=== PATIENT | male | born 1945 | race Caucasian/White ===

== ENCOUNTER → 2018-07-01 | Outpatient (CLI) | payer MEDICARE, MEDICAID ==
[~2018-07-01] MED LIST: FLUO20CA8 PO; HYDR-3245 PO; INSU100C SQ-INSULIN; INSU100V8 SQ; LISI-167 PO; OMEP-110 PO; OXYC1TAB7 PO; PREG50CA PO
== END | disposition home or self-care (01) ==
LOC: CFH 10:21
PROVIDERS: ATTEND Internal Medicine
DX: J44.9 Chronic obstructive pulmonary disease, unspecified (principal); R91.1 Solitary pulmonary nodule; I25.10 Atherosclerotic heart disease of native coronary artery without angina pectoris
CPT/HCPCS: 71250

== ENCOUNTER → 2018-07-23 | Outpatient (CLI) | payer MEDICARE, MEDICAID ==
[~2018-07-23] MED LIST changes: +GABA300C10 PO; +HYDR-3307 PO; +LISI5TAB7 PO; +VERA120T5 PO
== END | disposition home or self-care (01) ==
LOC: RAD 12:10
PROVIDERS: ATTEND Nurse Practitioner
DX: J44.9 Chronic obstructive pulmonary disease, unspecified (principal); R91.1 Solitary pulmonary nodule
CPT/HCPCS: 71250

== ENCOUNTER → 2018-07-30 | Outpatient (CLI) | payer MEDICARE, MEDICAID | END | disposition home or self-care (01) | LOC: PETCFH 13:38 | PROVIDERS: ATTEND Nurse Practitioner | DX: J43.9 Emphysema, unspecified (principal); J93.83 Other pneumothorax; J98.11 Atelectasis | CPT/HCPCS: 78815; A9552 ==

== ENCOUNTER 2018-07-31 13:30 | Inpatient (IN) | payer MEDICARE, MEDICAID ==
[~2018-07-31] VITALS: Ht 185.4 cm; Wt 77.4 kg
[2018-07-31] MEDS ORDERED: SODIUM CHLORIDE FLUSH 10ML SYR IVF ONE (14:00)
[2018-07-31 14:30] LABS: ALBUMIN 3.2 g/dL (3.4-5.0); ANION GAP 12 mmol/L (5-15); CALCIUM 9.6 mg/dL (8.5-10.1); CHLORIDE 105 mmol/L (98-107)
[2018-07-31 14:34] LABS: ALANINE AMINOTRANSFERASE 29 U/L (12-78); ALKALINE PHOSPHATASE 159 U/L (45-117); BILIRUBIN,TOTAL 0.6 mg/dL (0.2-1.0); CREATININE 0.77 mg/dL (0.7-1.3); TOTAL PROTEIN 7.4 g/dL (6.4-8.2)
[2018-07-31] MEDS ORDERED: LIDOCAINE-MPF 1%, 5ML ONE (14:34)
[2018-07-31 14:37] LABS: INTERNATIONAL NORMALIZED RATIO 0.91 (0.93-1.1); PROTHROMBIN TIME 9.4 Seconds (9.6-11.5)
[2018-07-31 14:40] LABS: BASOPHILS # (AUTO) 0.06 x10^3/uL (0-0.1); BASOPHILS % (AUTO) 1 % (0-1); EOSINOPHILS # (AUTO) 0.35 x10^3/uL (0-0.4); EOSINOPHILS % (AUTO) 4 % (1-7); LYMPHOCYTES # (AUTO) 2.46 x10^3/uL (1-3.4); LYMPHOCYTES % (AUTO) 29 % (22-44); MD NO; MEAN CORPUSCULAR HEMOGLOBIN 26.5 pg (27.5-34.5); MEAN CORPUSCULAR HGB CONC 33.4 g/dL (33.2-36.2); MEAN CORPUSCULAR VOLUME 79.6 fL (81-97); MEAN PLATELET VOLUME 8.3 fL (7.4-10.4); MONOCYTES # (AUTO) 0.96 x10^3/uL (0.2-0.8); MONOCYTES % (AUTO) 11 % (2-9); NEUTROPHILS # (AUTO) 4.71 x10^3/uL (1.8-6.8); NEUTROPHILS % (AUTO) 55 % (42-75); PLATELET COUNT 261 x10^3/uL (130-400); RED BLOOD COUNT 4.89 x10^6/uL (4.38-5.82); RED CELL DISTRIBUTION WIDTH 17.8 % (9.4-14.8)
[2018-07-31] MEDS ORDERED: FLUMAZENIL 0.1 MG/1 ML, 5ML ONE (14:46)
[2018-07-31] MEDS ORDERED: MIDAZOLAM 1 MG/ML, 5ML ONE (14:46)
[2018-07-31] MEDS ORDERED: NALOXONE 1 MG/ML, 2ML ONE (14:46)
[2018-07-31] MEDS ORDERED: FENTANYL PF 100 MCG/2ML ONE (14:46)
[2018-07-31] MEDS ORDERED: SODIUM CHLORIDE FLUSH 10ML SYR IVF PRN (15:00)
[2018-07-31] MEDS ORDERED: MORPHINE SULFATE 4 MG/ML, 1ML ONE (16:58)
[2018-07-31] MEDS ORDERED: ONDANSETRON 2MG/ML, 2ML IVPush PRN (17:00)
[2018-07-31] MEDS ORDERED: CYCLOBENZAPRINE 10 MG TABLET PO PRN (17:00)
[2018-07-31] MEDS ORDERED: hydrALAzine 20 MG/ML, 1ML IVPush PRN (17:00)
[2018-07-31] MEDS ORDERED: INSULIN GLARGINE 100 UNITS/ML, PEN SQ-INSULIN SCH (17:00)
[2018-07-31] MEDS ORDERED: ACETAMINOPHEN 325 MG TABLET PO PRN (17:00)
[2018-07-31] MEDS ORDERED: GUAIFENESIN/COD200MG-20MG/10ML LIQUID PO PRN (17:00)
[2018-07-31] MEDS ORDERED: DOCUSATE 100 MG CAPSULE PO PRN (17:00)
[2018-07-31] MEDS: morphine SULFATE 10 MG/ML, 1ML IVPush PRN (17:06)
[2018-07-31 17:41] VITALS: BP 112/65
[2018-07-31] MEDS: HYDROcodone/APAP 10/325 MG TABLET PO PRN (18:56)
[2018-07-31 20:56] VITALS: BP 108/56
[2018-07-31] MEDS: GABAPENTIN 300 MG CAPSULE PO SCH (21:55)
[2018-07-31] MEDS: INSULIN GLARGINE 100 UNITS/ML, PEN SQ-INSULIN SCH (22:32)
[2018-08-01 02:19] VITALS: BP 120/68
[2018-08-01 05:14] LABS: BASOPHILS # (AUTO) 0.05 x10^3/uL (0-0.1); BASOPHILS % (AUTO) 1 % (0-1); EOSINOPHILS # (AUTO) 0.57 x10^3/uL (0-0.4); EOSINOPHILS % (AUTO) 6 % (1-7); LYMPHOCYTES # (AUTO) 2.77 x10^3/uL (1-3.4); LYMPHOCYTES % (AUTO) 30 % (22-44); MD NO; MEAN CORPUSCULAR HEMOGLOBIN 26.1 pg (27.5-34.5); MEAN CORPUSCULAR VOLUME 79.3 fL (81-97); MEAN PLATELET VOLUME 7.8 fL (7.4-10.4); MONOCYTES # (AUTO) 0.99 x10^3/uL (0.2-0.8); MONOCYTES % (AUTO) 11 % (2-9); NEUTROPHILS # (AUTO) 4.92 x10^3/uL (1.8-6.8); NEUTROPHILS % (AUTO) 53 % (42-75); PLATELET COUNT 243 x10^3/uL (130-400); RED BLOOD COUNT 4.38 x10^6/uL (4.38-5.82)
[2018-08-01 05:22] LABS: ANION GAP 7 mmol/L (5-15); CALCIUM 8.5 mg/dL (8.5-10.1); CHLORIDE 106 mmol/L (98-107); CREATININE 0.61 mg/dL (0.7-1.3)
[2018-08-01] MEDS: INSULIN LISPRO 100 UNITS/ML, PEN SQ-INSULIN SCH ×4 (07:00→20:52)
[2018-08-01] MEDS ORDERED: ALBUTEROL/IPRATROPIUM 2.5MG/0.5MG, 3 ML NPPB SCH (07:00)
[2018-08-01 07:10] VITALS: BP 99/57
[2018-08-01] MEDS: LISINOPRIL 5 MG TABLET PO SCH (08:40)
[2018-08-01] MEDS: INSULIN GLARGINE 100 UNITS/ML, PEN SQ-INSULIN SCH ×2 (08:40→20:51)
[2018-08-01] MEDS: GABAPENTIN 300 MG CAPSULE PO SCH ×3 (08:41→20:42)
[2018-08-01] MEDS: VERAPAMIL 120MG TABLET PO SCH (08:41)
[2018-08-01] MEDS: FLUOXETINE HCL 20 MG CAPSULE PO SCH (08:41)
[2018-08-01] MEDS: OMEPRAZOLE 20 MG CAPSULE.DR PO SCH (08:42)
[2018-08-01] MEDS: HYDROcodone/APAP 10/325 MG TABLET PO PRN ×2 (08:48→20:52)
[2018-08-01] MEDS ORDERED: ALBUTEROL/IPRATROPIUM 2.5MG/0.5MG, 3 ML NPPB PRN (10:00)
[2018-08-01] MEDS: FLUTICASONE/VILANTEROL 100-25MCG/INH INH SCH (10:55)
[2018-08-01 14:26] LABS: RED BLOOD COUNT 4.37 x10^6/uL (4.38-5.82)
[2018-08-01 14:29] LABS: ABSOLUTE RETICS # 0.061 x10^6/uL (0.5-1.5); RETICULOCYTE COUNT % 1.41 % (0.5-1.5)
[2018-08-01 15:12] VITALS: BP 102/50
[2018-08-01 20:26] VITALS: BP 97/60
[2018-08-01] MEDS: morphine SULFATE 10 MG/ML, 1ML IVPush PRN (23:43)
[2018-08-02 02:46] VITALS: BP 110/66
[2018-08-02 06:44] VITALS: BP 108/64
[2018-08-02] MEDS: INSULIN LISPRO 100 UNITS/ML, PEN SQ-INSULIN SCH ×4 (07:33→21:00)
[2018-08-02] MEDS: FLUOXETINE HCL 20 MG CAPSULE PO SCH (09:10)
[2018-08-02] MEDS: OMEPRAZOLE 20 MG CAPSULE.DR PO SCH (09:10)
[2018-08-02] MEDS: GABAPENTIN 300 MG CAPSULE PO SCH ×3 (09:10→21:55)
[2018-08-02] MEDS: VERAPAMIL 120MG TABLET PO SCH (09:10)
[2018-08-02] MEDS: HYDROcodone/APAP 10/325 MG TABLET PO PRN ×3 (09:10→22:10)
[2018-08-02] MEDS: LISINOPRIL 5 MG TABLET PO SCH (09:10)
[2018-08-02] MEDS: FLUTICASONE/VILANTEROL 100-25MCG/INH INH SCH (09:10)
[2018-08-02] MEDS: INSULIN GLARGINE 100 UNITS/ML, PEN SQ-INSULIN SCH ×2 (10:00→21:55)
[2018-08-02 15:09] VITALS: BP 99/54
[2018-08-02 20:17] VITALS: BP 94/59
[2018-08-03 02:56] VITALS: BP 111/66
[2018-08-03 05:24] LABS: BASOPHILS # (AUTO) 0.05 x10^3/uL (0-0.1); BASOPHILS % (AUTO) 0 % (0-1); EOSINOPHILS % (AUTO) 4 % (1-7); LYMPHOCYTES # (AUTO) 3.64 x10^3/uL (1-3.4); LYMPHOCYTES % (AUTO) 29 % (22-44); MD NO; MEAN CORPUSCULAR HEMOGLOBIN 26.3 pg (27.5-34.5); MEAN CORPUSCULAR HGB CONC 33.1 g/dL (33.2-36.2); MEAN CORPUSCULAR VOLUME 79.2 fL (81-97); MEAN PLATELET VOLUME 7.9 fL (7.4-10.4); MONOCYTES # (AUTO) 1.22 x10^3/uL (0.2-0.8); MONOCYTES % (AUTO) 10 % (2-9); NEUTROPHILS % (AUTO) 57 % (42-75); PLATELET COUNT 252 x10^3/uL (130-400); RED BLOOD COUNT 4.54 x10^6/uL (4.38-5.82); RED CELL DISTRIBUTION WIDTH 18.4 % (9.4-14.8)
[2018-08-03 05:34] LABS: INTERNATIONAL NORMALIZED RATIO 0.95 (0.93-1.1); PROTHROMBIN TIME 9.8 Seconds (9.6-11.5)
[2018-08-03] MEDS: INSULIN LISPRO 100 UNITS/ML, PEN SQ-INSULIN SCH ×4 (07:14→21:49)
[2018-08-03 07:38] LABS: ANION GAP 10 mmol/L (5-15); CALCIUM 8.3 mg/dL (8.5-10.1); CHLORIDE 103 mmol/L (98-107)
[2018-08-03 09:00] VITALS: BP 112/72
[2018-08-03] MEDS: FLUTICASONE/VILANTEROL 100-25MCG/INH INH SCH (09:04)
[2018-08-03] MEDS: GABAPENTIN 300 MG CAPSULE PO SCH ×3 (09:05→20:59)
[2018-08-03] MEDS: LISINOPRIL 5 MG TABLET PO SCH (09:05)
[2018-08-03] MEDS: FLUOXETINE HCL 20 MG CAPSULE PO SCH (09:05)
[2018-08-03] MEDS: INSULIN GLARGINE 100 UNITS/ML, PEN SQ-INSULIN SCH ×2 (09:05→21:49)
[2018-08-03] MEDS: OMEPRAZOLE 20 MG CAPSULE.DR PO SCH (09:05)
[2018-08-03] MEDS: VERAPAMIL 120MG TABLET PO SCH (09:05)
[2018-08-03 12:25] VITALS: BP 116/66
[2018-08-03] MEDS ORDERED: BUPIVACAINE/PF-EPI 0.5% 1:200K ONE (14:59)
[2018-08-03] MEDS ORDERED: MIDAZOLAM 1 MG/ML, 2ML ONE (15:09)
[2018-08-03] MEDS ORDERED: FENTANYL PF 250 MCG/5ML ONE (15:09)
[2018-08-03] MEDS ORDERED: PROPOFOL 10 MG/ML, 20ML ONE (15:21)
[2018-08-03] MEDS ORDERED: FENTANYL PF 100 MCG/2ML ONE (15:56)
[2018-08-03] MEDS ORDERED: OXYcodone 5 MG/5 ML ORAL.SOL UDC PO PRN (16:00)
[2018-08-03] MEDS ORDERED: PROMETHAZINE 12.5 MG SUPP PR PRN (16:00)
[2018-08-03] MEDS ORDERED: MORPHINE SULFATE 4 MG/ML, 1ML IVPush PRN (16:00)
[2018-08-03] MEDS ORDERED: FENTANYL PF 100 MCG/2ML IV PRN (16:00)
[2018-08-03] MEDS ORDERED: MIDAZOLAM 1 MG/ML, 2ML IV PRN (16:00)
[2018-08-03] MEDS ORDERED: ALBUTEROL SULFATE 2.5 MG/3 ML NPPB PRN (16:00)
[2018-08-03] MEDS ORDERED: hydrALAzine 20 MG/ML, 1ML IV PRN (16:00)
[2018-08-03] MEDS ORDERED: ONDANSETRON 2MG/ML, 2ML IV PRN ×2 (16:00→18:30)
[2018-08-03] MEDS ORDERED: LABETALOL 5MG/ML, 20ML IV PRN (16:00)
[2018-08-03] MEDS ORDERED: EPHEDRINE 50 MG/ML, 1ML IVPush PRN (16:00)
[2018-08-03] MEDS ORDERED: MEPERIDINE/PF 25MG/0.5ML IVPush PRN (16:00)
[2018-08-03] MEDS ORDERED: PROMETHAZINE 25 MG/ML, 1ML IV PRN (16:00)
[2018-08-03] MEDS ORDERED: LORazepam 2 MG/ML, 1ML IVPush PRN (16:00)
[2018-08-03] MEDS ORDERED: ACETAMINOPHEN 325 MG TABLET PO PRN (16:00)
[2018-08-03] MEDS ORDERED: ONDANSETRON ODT 8 MG PO PRN (16:00)
[2018-08-03] MEDS ORDERED: DEXAMETHASONE 4 MG/ML, 1ML ONE (16:09)
[2018-08-03] MEDS ORDERED: ROCURONIUM 10MG/ML,5ML ONE (16:09)
[2018-08-03] MEDS ORDERED: ONDANSETRON 2MG/ML, 2ML ONE (16:09)
[2018-08-03] MEDS ORDERED: SUCCINYLCHOLINE 20 MG/ML, 10ML ONE (16:09)
[2018-08-03] MEDS ORDERED: HYDROmorphone 2 MG/ML, 1ML ONE (16:52)
[2018-08-03] MEDS: HYDROmorphone 1 MG/ML, 1ML IV PRN ×3 (16:54→17:14)
[2018-08-03] MEDS: POTASSIUM CHLORIDE 20 MEQ in D5%-0.45% NACL 1,000 ML IV SCH (18:00)
[2018-08-03] MEDS ORDERED: HEPARIN 5,000 UNITS/ML, 1ML SQ SCH (18:00)
[2018-08-03] MEDS: ACETAMINOPHEN 500 MG TABLET PO SCH (18:34)
[2018-08-03 20:07] VITALS: BP 100/52
[2018-08-03] MEDS ORDERED: CEFAZOLIN PMX 2GM/100ML 100 ML IVPB SCH (23:00)
[2018-08-03] MEDS: CEFAZOLIN 2,000 MG in SODIUM CHLORIDE 0.9% 50 ML IVPB SCH (23:07)
[2018-08-04] MEDS: POTASSIUM CHLORIDE 20 MEQ in D5%-0.45% NACL 1,000 ML IV SCH ×2 (00:29→13:28)
[2018-08-04] MEDS: ACETAMINOPHEN 500 MG TABLET PO SCH ×4 (00:29→18:23)
[2018-08-04 02:47] VITALS: BP 112/60
[2018-08-04 05:55] LABS: BASOPHILS # (AUTO) 0.01 x10^3/uL (0-0.1); BASOPHILS % (AUTO) 0 % (0-1); EOSINOPHILS % (AUTO) 0 % (1-7); LYMPHOCYTES # (AUTO) 1.07 x10^3/uL (1-3.4); LYMPHOCYTES % (AUTO) 13 % (22-44); MD NO; MEAN CORPUSCULAR HEMOGLOBIN 26.3 pg (27.5-34.5); MEAN CORPUSCULAR VOLUME 79.7 fL (81-97); MEAN PLATELET VOLUME 8.2 fL (7.4-10.4); MONOCYTES % (AUTO) 6 % (2-9); NEUTROPHILS # (AUTO) 6.66 x10^3/uL (1.8-6.8); NEUTROPHILS % (AUTO) 81 % (42-75); PLATELET COUNT 238 x10^3/uL (130-400); RED BLOOD COUNT 4.52 x10^6/uL (4.38-5.82); RED CELL DISTRIBUTION WIDTH 17.9 % (9.4-14.8)
[2018-08-04 06:02] LABS: ANION GAP 10 mmol/L (5-15); CALCIUM 8.6 mg/dL (8.5-10.1); CHLORIDE 100 mmol/L (98-107); CREATININE 0.75 mg/dL (0.7-1.3)
[2018-08-04 07:41] VITALS: BP 131/61
[2018-08-04] MEDS: CEFAZOLIN 2,000 MG in SODIUM CHLORIDE 0.9% 50 ML IVPB SCH (07:46)
[2018-08-04] MEDS: HEPARIN 5,000 UNITS/ML, 1ML SQ SCH ×2 (07:47→16:11)
[2018-08-04] MEDS: INSULIN LISPRO 100 UNITS/ML, PEN SQ-INSULIN SCH ×4 (07:47→21:02)
[2018-08-04] MEDS: FLUTICASONE/VILANTEROL 100-25MCG/INH INH SCH (09:31)
[2018-08-04] MEDS: FLUOXETINE HCL 20 MG CAPSULE PO SCH (09:31)
[2018-08-04] MEDS: LISINOPRIL 5 MG TABLET PO SCH (09:32)
[2018-08-04] MEDS: GABAPENTIN 300 MG CAPSULE PO SCH ×3 (09:32→20:41)
[2018-08-04] MEDS: VERAPAMIL 120MG TABLET PO SCH (09:32)
[2018-08-04] MEDS: OMEPRAZOLE 20 MG CAPSULE.DR PO SCH (09:32)
[2018-08-04] MEDS: INSULIN GLARGINE 100 UNITS/ML, PEN SQ-INSULIN SCH ×2 (09:33→21:02)
[2018-08-04 13:12] VITALS: BP 125/56
[2018-08-04 14:15] VITALS: BP 111/55
[2018-08-04] MEDS: HYDROcodone/APAP 10/325 MG TABLET PO PRN (16:11)
[2018-08-04 19:58] VITALS: BP 103/60
[2018-08-05] VITALS (7 sets, daily range): BP systolic 88–114; BP diastolic 46–61
[2018-08-05] MEDS: ACETAMINOPHEN 500 MG TABLET PO SCH ×4 (00:12→21:33)
[2018-08-05] MEDS: HEPARIN 5,000 UNITS/ML, 1ML SQ SCH ×3 (00:12→15:27)
[2018-08-05 04:50] LABS: CHLORIDE 105 mmol/L (98-107)
[2018-08-05 05:00] LABS: CALCIUM 8.4 mg/dL (8.5-10.1); CREATININE 0.64 mg/dL (0.7-1.3)
[2018-08-05 05:03] LABS: ANION GAP 7 mmol/L (5-15)
[2018-08-05] MEDS: INSULIN LISPRO 100 UNITS/ML, PEN SQ-INSULIN SCH ×4 (07:34→21:34)
[2018-08-05] MEDS: VERAPAMIL 120MG TABLET PO SCH (09:00)
[2018-08-05] MEDS: LISINOPRIL 5 MG TABLET PO SCH (09:00)
[2018-08-05] MEDS: INSULIN GLARGINE 100 UNITS/ML, PEN SQ-INSULIN SCH ×2 (09:11→21:34)
[2018-08-05] MEDS: FLUOXETINE HCL 20 MG CAPSULE PO SCH (09:11)
[2018-08-05] MEDS: GABAPENTIN 300 MG CAPSULE PO SCH ×3 (09:11→21:33)
[2018-08-05] MEDS: OMEPRAZOLE 20 MG CAPSULE.DR PO SCH (09:11)
[2018-08-05] MEDS: FLUTICASONE/VILANTEROL 100-25MCG/INH INH SCH (09:13)
[2018-08-05] MEDS: OXYcodone IR 5MG TABLET PO PRN ×2 (15:21→21:40)
[2018-08-06] MEDS: HEPARIN 5,000 UNITS/ML, 1ML SQ SCH ×2 (01:00→10:17)
[2018-08-06 01:01] VITALS: BP 105/56
[2018-08-06] MEDS: ACETAMINOPHEN 500 MG TABLET PO SCH ×2 (02:56→10:17)
[2018-08-06] MEDS: INSULIN LISPRO 100 UNITS/ML, PEN SQ-INSULIN SCH ×2 (07:00→11:45)
[2018-08-06 08:15] VITALS: BP 114/64
[2018-08-06] MEDS: GABAPENTIN 300 MG CAPSULE PO SCH (08:17)
[2018-08-06] MEDS: FLUOXETINE HCL 20 MG CAPSULE PO SCH (08:17)
[2018-08-06] MEDS: OMEPRAZOLE 20 MG CAPSULE.DR PO SCH (08:17)
[2018-08-06] MEDS: FLUTICASONE/VILANTEROL 100-25MCG/INH INH SCH (08:18)
[2018-08-06] MEDS: LISINOPRIL 5 MG TABLET PO SCH (08:18)
[2018-08-06] MEDS: VERAPAMIL 120MG TABLET PO SCH (08:19)
[2018-08-06] MEDS: INSULIN GLARGINE 100 UNITS/ML, PEN SQ-INSULIN SCH (08:43)
[2018-08-06] MEDS ORDERED: INSULIN GLARGINE 100 UNITS/ML, PEN SQ-INSULIN ONE ×2 (09:00)
[2018-08-06] MEDS: OXYcodone IR 5MG TABLET PO PRN (10:17)
[2018-08-06] MEDS ORDERED: INSU100V8 SQ ×2 (10:35→11:36)
[2018-08-06 13:22] VITALS: BP 104/56
== END 2018-08-06 13:34 | disposition home health service (06) | DRG 163 ==
LOC: ED 14:15 → EDIP 14:43 → 4NOR 17:19
PROVIDERS: ADMIT Internal Medicine; ATTEND Internal Medicine
PROC: 0W9B30Z Drainage of Left Pleural Cavity with Drainage Device, Percutaneous Approach (ICD-10-PCS; 2018-07-31)
PROC: 0BBJ4ZZ Excision of Left Lower Lung Lobe, Percutaneous Endoscopic Approach (ICD-10-PCS; principal; 2018-08-03 16:00)
DX: J95.811 Postprocedural pneumothorax (principal); J96.21 Acute and chronic respiratory failure with hypoxia; C34.32 Malignant neoplasm of lower lobe, left bronchus or lung; J98.11 Atelectasis; J44.1 Chronic obstructive pulmonary disease with (acute) exacerbation; R64 Cachexia; E11.649 Type 2 diabetes mellitus with hypoglycemia without coma; I10 Essential (primary) hypertension; M40.209 Unspecified kyphosis, site unspecified; G89.29 Other chronic pain; E11.40 Type 2 diabetes mellitus with diabetic neuropathy, unspecified; I95.9 Hypotension, unspecified; R91.1 Solitary pulmonary nodule; M54.5 Low back pain; D50.9 Iron deficiency anemia, unspecified; D72.829 Elevated white blood cell count, unspecified; E11.65 Type 2 diabetes mellitus with hyperglycemia; F17.210 Nicotine dependence, cigarettes, uncomplicated; K21.9 Gastro-esophageal reflux disease without esophagitis; K59.00 Constipation, unspecified; Y83.8 Other surgical procedures as the cause of abnormal reaction of the patient, or of later complication, without mention of misadventure at the time of the procedure; Y84.8 Other medical procedures as the cause of abnormal reaction of the patient, or of later complication, without mention of misadventure at the time of the procedure; Z79.4 Long term (current) use of insulin; Z80.0 Family history of malignant neoplasm of digestive organs; Z82.3 Family history of stroke; Z99.81 Dependence on supplemental oxygen; Z90.49 Acquired absence of other specified parts of digestive tract; Z90.89 Acquired absence of other organs; Z98.1 Arthrodesis status; Z80.8 Family history of malignant neoplasm of other organs or systems
CPT/HCPCS: 32557; 36415; 71045; 80048; 80053; 82728; 82947; 82962; 83540; 83550; 83735; 85025; 85045; 85610; 85730; 88307; 93005; 94640; 99156; 99157; 99285; C1729; G0378; J0690; J1100; J1170; J1644; J2250; J2270; J2405; J2704; J3010; J3480; C1760; C1769; J0330; J1815; J2310

== ENCOUNTER 2018-09-17 17:00 | Inpatient (IN) | payer MEDICARE, MEDICAID ==
[~2018-09-17] VITALS: Ht 185.4 cm; Wt 80.1 kg
[~2018-09-17 17:00] MED LIST changes: +ALBU8.5H8 INH; +UMEC1DIS INH
[2018-09-17] MEDS ORDERED: SODIUM CHLORIDE 0.9% 1,000 ML IV ONE (17:21)
[2018-09-17] MEDS ORDERED: ACETAMINOPHEN 325 MG TABLET ONE (17:27)
[2018-09-17] MEDS ORDERED: SODIUM CHLORIDE FLUSH 10ML SYR IVF ONE (17:30)
[2018-09-17] MEDS ORDERED: SODIUM CHLORIDE 0.9% 1,000ML IVBOLUS ONE (17:30)
[2018-09-17] MEDS ORDERED: ACETAMINOPHEN 325 MG TABLET PO ONE (17:30)
[2018-09-17] MEDS ORDERED: ALBUTEROL/IPRATROPIUM 2.5MG/0.5MG, 3 ML ONE (17:33)
[2018-09-17] MEDS: ALBUTEROL/IPRATROPIUM 2.5MG/0.5MG, 3 ML NPPB SCH (17:35)
[2018-09-17 17:45] LABS: MEAN CORPUSCULAR HEMOGLOBIN 27.4 pg (27.5-34.5); MEAN CORPUSCULAR HGB CONC 33.1 g/dL (33.2-36.2); MEAN CORPUSCULAR VOLUME 82.6 fL (81-97); MEAN PLATELET VOLUME 8.3 fL (7.4-10.4); PLATELET COUNT 235 x10^3/uL (130-400); RED CELL DISTRIBUTION WIDTH 16.4 % (9.4-14.8)
[2018-09-17 17:55] LABS: INTERNATIONAL NORMALIZED RATIO 0.89 (0.93-1.1); PROTHROMBIN TIME 9.5 Seconds (9.6-11.5)
[2018-09-17 17:56] LABS: ALANINE AMINOTRANSFERASE 35 U/L (12-78); ALBUMIN 2.5 g/dL (3.4-5.0); ANION GAP 13 mmol/L (5-15); CALCIUM 8.4 mg/dL (8.5-10.1); CHLORIDE 100 mmol/L (98-107); CREATININE 1.21 mg/dL (0.7-1.3)
[2018-09-17 18:00] LABS: ALKALINE PHOSPHATASE 131 U/L (45-117); BILIRUBIN,TOTAL 1.2 mg/dL (0.2-1.0); TOTAL PROTEIN 6.8 g/dL (6.4-8.2); TROPONIN I < 0.015 ng/mL (0.000-0.045)
[2018-09-17 18:05] LABS: MD YES
[2018-09-17 18:08] LABS: BAND#(MANUAL) 1.55 x10^3/uL; BANDS%(MANUAL) 13 % (0-7); LYMPH#(MANUAL) 0.95 x10^3/uL (1-3.4); LYMPHS% (MANUAL) 8 % (22-44); MONOS% (MANUAL) 5 % (2-9); SEG#(MANUAL) 8.81 x10^3/uL (1.8-6.8); SEGS% (MANUAL) 74 % (42-75)
[2018-09-17 18:10] LABS: <PLATELET ESTIMATE> ADEQUATE; <PLT MORPHOLOGY> NORMAL PLT MORPH; <RBC MORPHOLOGY> NORMAL; TOXIC GRAN 1+
[2018-09-17 18:17] LABS: RAPID INFLUENZA A Negative (Negative); RAPID INFLUENZA B Negative (Negative)
[2018-09-17] MEDS ORDERED: CEFTRIAXONE PMX 1GM/50ML 50 ML ONE (18:34)
[2018-09-17] MEDS ORDERED: CEFTRIAXONE 1,000 MG in SODIUM CHLORIDE 0.9% 50 ML IVPB ONE (19:00)
[2018-09-17] MEDS ORDERED: INSULIN REGULAR 100 UNITS/ML, 3ML VIAL SQ-INSULIN ONE (19:00)
[2018-09-17] MEDS ORDERED: AZITHROMYCIN 500 MG in SODIUM CHLORIDE 0.9% 250 ML IVPB ONE (19:00)
[2018-09-17] MEDS ORDERED: INSULIN REGULAR 100 UNITS/ML, 3ML VIAL ONE (19:01)
[2018-09-17] MEDS ORDERED: SODIUM CHLORIDE FLUSH 10ML SYR IVF PRN (19:30)
[2018-09-17 20:21] VITALS: BP 101/45
[2018-09-17] MEDS ORDERED: hydrALAzine 20 MG/ML, 1ML IVPush PRN (20:30)
[2018-09-17] MEDS ORDERED: OXYcodone IR 5MG TABLET PO PRN (20:30)
[2018-09-17] MEDS ORDERED: ONDANSETRON 2MG/ML, 2ML IVPush PRN (20:30)
[2018-09-17] MEDS ORDERED: PROMETHAZINE 25 MG/ML, 1ML IM PRN (20:30)
[2018-09-17] MEDS ORDERED: BISACODYL 10 MG SUPP PR PRN (20:30)
[2018-09-17] MEDS ORDERED: GABAPENTIN 300 MG CAPSULE PO PRN (20:30)
[2018-09-17] MEDS ORDERED: ONDANSETRON ODT 4 MG PO PRN (20:30)
[2018-09-17] MEDS ORDERED: LABETALOL 5MG/ML, 20ML IVPush PRN (20:30)
[2018-09-17] MEDS ORDERED: ACETAMINOPHEN 325 MG TABLET PO PRN (20:30)
[2018-09-17] MEDS ORDERED: POLYETHYLENE GLYCOL 17 GM PACKET PO PRN (20:30)
[2018-09-17] MEDS ORDERED: DOCUSATE 100 MG CAPSULE PO PRN (20:30)
[2018-09-17] MEDS ORDERED: morphine SULFATE 10 MG/ML, 1ML IVPush PRN (20:30)
[2018-09-17 21:00] LABS: FREE T4 (FREE THYROXINE) 1.98 ng/dL (0.76-1.46)
[2018-09-17] MEDS ORDERED: ALBUTEROL SULFATE 2.5 MG/3 ML NPPB PRN (21:00)
[2018-09-17 21:01] LABS: THYROID STIMULATING HORMONE < 0.005 mIU/L (0.358-3.740)
[2018-09-17 21:16] LABS: HEMOGLOBIN A1C 8.8 % (4.2-6.3)
[2018-09-17] MEDS: SODIUM CHLORIDE 0.9% 1,000 ML IV SCH (21:23)
[2018-09-17] MEDS: GABAPENTIN 300 MG CAPSULE PO SCH (21:24)
[2018-09-17] MEDS: HEPARIN 5,000 UNITS/ML, 1ML SQ SCH (21:24)
[2018-09-17] MEDS: HYDROcodone/APAP 10/325 MG TABLET PO PRN (21:33)
[2018-09-17] MEDS: INSULIN LISPRO 100 UNITS/ML, PEN SQ-INSULIN SCH (21:50)
[2018-09-17] MEDS: INSULIN GLARGINE 100 UNITS/ML, PEN SQ-INSULIN SCH (21:51)
[2018-09-17] MEDS: PIPERACILLIN/TAZO/PMX 3.375GM 50 ML IV SCH (22:51)
[2018-09-18 02:42] VITALS: BP 102/45
[2018-09-18] MEDS: SODIUM CHLORIDE 0.9% 1,000 ML IV SCH ×3 (05:14→17:04)
[2018-09-18] MEDS: PIPERACILLIN/TAZO/PMX 3.375GM 50 ML IV SCH ×4 (05:14→20:36)
[2018-09-18] MEDS: HEPARIN 5,000 UNITS/ML, 1ML SQ SCH ×3 (05:14→20:36)
[2018-09-18 06:23] LABS: MEAN CORPUSCULAR HEMOGLOBIN 27.8 pg (27.5-34.5); MEAN CORPUSCULAR HGB CONC 33.7 g/dL (33.2-36.2); MEAN CORPUSCULAR VOLUME 82.4 fL (81-97); PLATELET COUNT 229 x10^3/uL (130-400); RED BLOOD COUNT 3.66 x10^6/uL (4.38-5.82); RED CELL DISTRIBUTION WIDTH 16.5 % (9.4-14.8)
[2018-09-18 06:25] LABS: CHLORIDE 107 mmol/L (98-107)
[2018-09-18 06:33] LABS: ALANINE AMINOTRANSFERASE 28 U/L (12-78); ALBUMIN 1.9 g/dL (3.4-5.0); ALKALINE PHOSPHATASE 102 U/L (45-117); ANION GAP 11 mmol/L (5-15); BILIRUBIN,TOTAL 0.9 mg/dL (0.2-1.0); CALCIUM 7.9 mg/dL (8.5-10.1); CHOL/HDL RATIO 2.2; CHOLESTEROL, TOTAL 113 mg/dL (140-239); CREATININE 1.02 mg/dL (0.7-1.3); HDL CHOL % 45 % (26-37); HDL CHOLESTEROL (DIRECT) 51 mg/dL (40-60); LDL CHOLESTEROL,CALCULATED 45 mg/dL (54-169); LDL/HDL RATIO 0.9 (0.5-3.0); TOTAL PROTEIN 5.6 g/dL (6.4-8.2); TRIGLYCERIDES 84 mg/dL (50-200); VLDL CHOLESTEROL 17 mg/dL (0-25)
[2018-09-18] MEDS: ALBUTEROL/IPRATROPIUM 2.5MG/0.5MG, 3 ML NPPB SCH ×4 (06:35→19:41)
[2018-09-18 06:42] LABS: MICROSCOPIC AUTO
[2018-09-18 06:44] LABS: CULTURE INDICATED? YES
[2018-09-18 06:47] LABS: BASOPHILS # (AUTO) 0.01 x10^3/uL (0-0.1); BASOPHILS % (AUTO) 0 % (0-1); EOSINOPHILS # (AUTO) 0.04 x10^3/uL (0-0.4); EOSINOPHILS % (AUTO) 0 % (1-7); LYMPHOCYTES # (AUTO) 1.53 x10^3/uL (1-3.4); LYMPHOCYTES % (AUTO) 12 % (22-44); MD SCAN; MONOCYTES # (AUTO) 0.63 x10^3/uL (0.2-0.8); MONOCYTES % (AUTO) 5 % (2-9); NEUTROPHILS # (AUTO) 10.18 x10^3/uL (1.8-6.8); NEUTROPHILS % (AUTO) 82 % (42-75)
[2018-09-18 07:10] VITALS: BP 106/50
[2018-09-18] MEDS: INSULIN LISPRO 100 UNITS/ML, PEN SQ-INSULIN SCH ×4 (07:52→20:36)
[2018-09-18] MEDS: VERAPAMIL 120MG TABLET PO SCH (08:27)
[2018-09-18] MEDS: POTASSIUM CHLORIDE 20 MEQ PACKET PO SCH ×2 (08:27→16:19)
[2018-09-18] MEDS: FLUOXETINE HCL 20 MG CAPSULE PO SCH (08:27)
[2018-09-18] MEDS: OMEPRAZOLE 20 MG CAPSULE.DR PO SCH (08:27)
[2018-09-18] MEDS: GABAPENTIN 300 MG CAPSULE PO SCH ×3 (08:27→20:36)
[2018-09-18] MEDS ORDERED: LISINOPRIL 5 MG TABLET PO SCH (09:00)
[2018-09-18] MEDS: TEMPLATE NON-FORMULARY MED. (Umeclidinium Brm/Vilanterol Tr (Anoro Ellipta 62.5-25 Mcg Inh INH SCH (09:00)
[2018-09-18 12:14] VITALS: BP 99/53
[2018-09-18 19:22] VITALS: BP 112/52
[2018-09-18] MEDS: INSULIN GLARGINE 100 UNITS/ML, PEN SQ-INSULIN SCH (20:35)
[2018-09-18] MEDS: HYDROcodone/APAP 10/325 MG TABLET PO PRN (20:37)
[2018-09-19] MEDS: PIPERACILLIN/TAZO/PMX 3.375GM 50 ML IV SCH ×4 (03:39→21:05)
[2018-09-19 03:40] VITALS: BP 110/49
[2018-09-19] MEDS: SODIUM CHLORIDE 0.9% 1,000 ML IV SCH (03:45)
[2018-09-19] MEDS: HEPARIN 5,000 UNITS/ML, 1ML SQ SCH ×3 (05:24→21:05)
[2018-09-19 05:30] LABS: ALANINE AMINOTRANSFERASE 25 U/L (12-78); ALBUMIN 1.9 g/dL (3.4-5.0); ANION GAP 9 mmol/L (5-15); CALCIUM 7.3 mg/dL (8.5-10.1); CHLORIDE 108 mmol/L (98-107); CREATININE 0.74 mg/dL (0.7-1.3)
[2018-09-19 05:32] LABS: ALKALINE PHOSPHATASE 103 U/L (45-117); BILIRUBIN,TOTAL 0.5 mg/dL (0.2-1.0); TOTAL PROTEIN 5.2 g/dL (6.4-8.2)
[2018-09-19 05:43] LABS: BASOPHILS # (AUTO) 0.01 x10^3/uL (0-0.1); BASOPHILS % (AUTO) 0 % (0-1); EOSINOPHILS # (AUTO) 0.09 x10^3/uL (0-0.4); EOSINOPHILS % (AUTO) 1 % (1-7); LYMPHOCYTES # (AUTO) 1.48 x10^3/uL (1-3.4); LYMPHOCYTES % (AUTO) 17 % (22-44); MD NO; MEAN CORPUSCULAR HEMOGLOBIN 28.1 pg (27.5-34.5); MEAN CORPUSCULAR HGB CONC 34.3 g/dL (33.2-36.2); MEAN CORPUSCULAR VOLUME 82.1 fL (81-97); MONOCYTES # (AUTO) 0.69 x10^3/uL (0.2-0.8); MONOCYTES % (AUTO) 8 % (2-9); NEUTROPHILS # (AUTO) 6.61 x10^3/uL (1.8-6.8); NEUTROPHILS % (AUTO) 74 % (42-75); PLATELET COUNT 213 x10^3/uL (130-400); RED BLOOD COUNT 3.37 x10^6/uL (4.38-5.82); RED CELL DISTRIBUTION WIDTH 16.6 % (9.4-14.8)
[2018-09-19] MEDS: ALBUTEROL/IPRATROPIUM 2.5MG/0.5MG, 3 ML NPPB SCH ×5 (07:05→23:11)
[2018-09-19 07:07] VITALS: BP 120/66
[2018-09-19] MEDS ORDERED: FUROSEMIDE 20 MG/2 ML IV ONE (08:30)
[2018-09-19] MEDS: OMEPRAZOLE 20 MG CAPSULE.DR PO SCH (08:33)
[2018-09-19] MEDS: FLUOXETINE HCL 20 MG CAPSULE PO SCH (08:33)
[2018-09-19] MEDS: GABAPENTIN 300 MG CAPSULE PO SCH ×3 (08:33→21:05)
[2018-09-19] MEDS: POTASSIUM CHLORIDE 20 MEQ PACKET PO SCH ×2 (08:33→17:52)
[2018-09-19] MEDS: VERAPAMIL 120MG TABLET PO SCH (08:34)
[2018-09-19] MEDS: INSULIN LISPRO 100 UNITS/ML, PEN SQ-INSULIN SCH ×4 (08:35→21:00)
[2018-09-19] MEDS: TEMPLATE NON-FORMULARY MED. (Umeclidinium Brm/Vilanterol Tr (Anoro Ellipta 62.5-25 Mcg Inh INH SCH (08:42)
[2018-09-19] MEDS ORDERED: OMNIPAQUE 350 MG/ML, 75ML BOTTLE ONE (09:29)
[2018-09-19] MEDS ORDERED: VANCOMYCIN PER PHARMACY MC PRN (10:30)
[2018-09-19] MEDS ORDERED: PHARMACOKINETIC MONITORING MC PRN (11:00)
[2018-09-19] MEDS ORDERED: PHARMACOKINETIC CONSULTATION MC ONE (11:00)
[2018-09-19] MEDS: methylPREDNISolone SOD SUCC 125 MG/2 ML IVPush SCH ×3 (11:36→23:57)
[2018-09-19] MEDS: VANCOMYCIN 1,600 MG in SODIUM CHLORIDE 0.9% 250 ML IV SCH (11:38)
[2018-09-19] MEDS: HYDROcodone/APAP 10/325 MG TABLET PO PRN ×3 (11:39→21:00)
[2018-09-19 13:49] VITALS: BP 112/62
[2018-09-19 18:54] VITALS: BP 108/54
[2018-09-19] MEDS ORDERED: INSULIN LISPRO 100 UNITS/ML, PEN SQ-INSULIN ONE (21:00)
[2018-09-19] MEDS ORDERED: INSULIN GLARGINE 100 UNITS/ML, PEN SQ-INSULIN SCH (21:00)
[2018-09-20 00:55] VITALS: BP 127/62
[2018-09-20] MEDS: ALBUTEROL/IPRATROPIUM 2.5MG/0.5MG, 3 ML NPPB SCH ×6 (02:58→22:05)
[2018-09-20] MEDS: PIPERACILLIN/TAZO/PMX 3.375GM 50 ML IV SCH ×4 (03:19→21:27)
[2018-09-20] MEDS: HYDROcodone/APAP 10/325 MG TABLET PO PRN ×2 (05:50→21:28)
[2018-09-20] MEDS: methylPREDNISolone SOD SUCC 125 MG/2 ML IVPush SCH ×3 (05:50→21:28)
[2018-09-20] MEDS: HEPARIN 5,000 UNITS/ML, 1ML SQ SCH ×3 (05:50→21:29)
[2018-09-20 07:42] VITALS: BP 159/68
[2018-09-20 07:44] LABS: ALBUMIN 2.3 g/dL (3.4-5.0); ANION GAP 13 mmol/L (5-15); CALCIUM 8.3 mg/dL (8.5-10.1); CHLORIDE 104 mmol/L (98-107); CREATININE 0.82 mg/dL (0.7-1.3)
[2018-09-20] MEDS ORDERED: INSULIN GLARGINE 100 UNITS/ML, PEN SQ-INSULIN SCH (08:00)
[2018-09-20] MEDS: TEMPLATE NON-FORMULARY MED. (Umeclidinium Brm/Vilanterol Tr (Anoro Ellipta 62.5-25 Mcg Inh INH SCH (08:30)
[2018-09-20] MEDS: GABAPENTIN 300 MG CAPSULE PO SCH ×3 (08:30→21:28)
[2018-09-20] MEDS: POTASSIUM CHLORIDE 20 MEQ PACKET PO SCH ×2 (08:30→16:14)
[2018-09-20] MEDS: VERAPAMIL 120MG TABLET PO SCH (08:30)
[2018-09-20] MEDS: INSULIN GLARGINE 100 UNITS/ML, PEN SQ-INSULIN SCH ×2 (08:30→21:29)
[2018-09-20] MEDS: FLUOXETINE HCL 20 MG CAPSULE PO SCH (08:30)
[2018-09-20] MEDS: OMEPRAZOLE 20 MG CAPSULE.DR PO SCH (08:30)
[2018-09-20] MEDS: INSULIN LISPRO 100 UNITS/ML, PEN SQ-INSULIN SCH ×3 (11:02→21:29)
[2018-09-20 12:27] VITALS: BP 129/56
[2018-09-20] MEDS: VANCOMYCIN 1,600 MG in SODIUM CHLORIDE 0.9% 250 ML IV SCH (12:37)
[2018-09-20 20:41] VITALS: BP 134/63
[2018-09-21 01:26] VITALS: BP 129/52
[2018-09-21] MEDS: ALBUTEROL/IPRATROPIUM 2.5MG/0.5MG, 3 ML NPPB SCH ×6 (02:51→22:44)
[2018-09-21] MEDS: PIPERACILLIN/TAZO/PMX 3.375GM 50 ML IV SCH ×4 (03:15→22:33)
[2018-09-21] MEDS: HEPARIN 5,000 UNITS/ML, 1ML SQ SCH ×3 (06:20→22:34)
[2018-09-21 07:42] VITALS: BP 132/56
[2018-09-21] MEDS: TEMPLATE NON-FORMULARY MED. (Umeclidinium Brm/Vilanterol Tr (Anoro Ellipta 62.5-25 Mcg Inh INH SCH (08:04)
[2018-09-21] MEDS: GABAPENTIN 300 MG CAPSULE PO SCH ×3 (08:11→20:54)
[2018-09-21] MEDS: FLUOXETINE HCL 20 MG CAPSULE PO SCH (08:12)
[2018-09-21] MEDS: methylPREDNISolone SOD SUCC 125 MG/2 ML IVPush SCH ×2 (08:12→20:54)
[2018-09-21] MEDS: OMEPRAZOLE 20 MG CAPSULE.DR PO SCH (08:12)
[2018-09-21] MEDS: POTASSIUM CHLORIDE 20 MEQ PACKET PO SCH ×2 (08:12→17:21)
[2018-09-21] MEDS: VERAPAMIL 120MG TABLET PO SCH (08:12)
[2018-09-21] MEDS: INSULIN LISPRO 100 UNITS/ML, PEN SQ-INSULIN SCH ×4 (08:13→20:55)
[2018-09-21] MEDS: INSULIN GLARGINE 100 UNITS/ML, PEN SQ-INSULIN SCH ×2 (08:13→20:55)
[2018-09-21 09:41] LABS: ALBUMIN 2.2 g/dL (3.4-5.0); ANION GAP 9 mmol/L (5-15); CALCIUM 7.8 mg/dL (8.5-10.1); CHLORIDE 108 mmol/L (98-107); CREATININE 0.87 mg/dL (0.7-1.3)
[2018-09-21] MEDS: VANCOMYCIN 1,600 MG in SODIUM CHLORIDE 0.9% 250 ML IV SCH (11:56)
[2018-09-21 12:21] VITALS: BP 134/51
[2018-09-21 18:36] VITALS: BP 143/62
[2018-09-22] MEDS: ALBUTEROL/IPRATROPIUM 2.5MG/0.5MG, 3 ML NPPB SCH ×4 (03:00→14:59)
[2018-09-22 03:26] VITALS: BP 97/51
[2018-09-22] MEDS: PIPERACILLIN/TAZO/PMX 3.375GM 50 ML IV SCH (04:07)
[2018-09-22 06:24] VITALS: BP 143/56
[2018-09-22] MEDS: INSULIN LISPRO 100 UNITS/ML, PEN SQ-INSULIN SCH ×3 (07:00→16:00)
[2018-09-22] MEDS ORDERED: SODIUM CHLORIDE 0.9% 1,000 ML IV SCH (07:30)
[2018-09-22] MEDS: TEMPLATE NON-FORMULARY MED. (Umeclidinium Brm/Vilanterol Tr (Anoro Ellipta 62.5-25 Mcg Inh INH SCH (08:14)
[2018-09-22] MEDS: FLUOXETINE HCL 20 MG CAPSULE PO SCH (08:26)
[2018-09-22] MEDS: HEPARIN 5,000 UNITS/ML, 1ML SQ SCH ×2 (08:26→16:00)
[2018-09-22] MEDS: methylPREDNISolone SOD SUCC 125 MG/2 ML IVPush SCH (08:26)
[2018-09-22] MEDS: GABAPENTIN 300 MG CAPSULE PO SCH ×2 (08:26→16:21)
[2018-09-22] MEDS: VERAPAMIL 120MG TABLET PO SCH (08:27)
[2018-09-22] MEDS: POTASSIUM CHLORIDE 20 MEQ PACKET PO SCH (08:27)
[2018-09-22] MEDS: OMEPRAZOLE 20 MG CAPSULE.DR PO SCH (08:28)
[2018-09-22] MEDS: INSULIN GLARGINE 100 UNITS/ML, PEN SQ-INSULIN SCH (08:29)
[2018-09-22 10:32] LABS: CLOSTRIDIUM DIFFICILE ANTIGEN NEGATIVE; CLOSTRIDIUM DIFFICILE TOXIN NEGATIVE (Negative)
[2018-09-22] MEDS ORDERED: LISINOPRIL 5 MG TABLET PO SCH (11:00)
[2018-09-22] MEDS: VANCOMYCIN 1,600 MG in SODIUM CHLORIDE 0.9% 250 ML IV SCH (11:54)
[2018-09-22 12:00] VITALS: BP 102/50
[2018-09-22] MEDS ORDERED: ALBU2.5V NPPB (13:33)
[2018-09-22] MEDS ORDERED: IPRA3AMP30 NPPB (13:33)
[2018-09-22] MEDS ORDERED: METH125V16 IVPush (13:33)
[2018-09-22] MEDS ORDERED: POTA20PA25 PO (13:33)
[2018-09-22] MEDS ORDERED: HEPA50002 SQ (13:33)
[2018-09-22] MEDS ORDERED: Vancomycin Per Pharmacy MC (13:33)
[2018-09-22] MEDS ORDERED: INSU100I13 SQ-INSULIN (13:33)
[2018-09-22] MEDS ORDERED: INSU100I11 SQ-INSULIN (13:33)
[2018-09-23] MEDS ORDERED: VANCOMYCIN 1,600 MG in SODIUM CHLORIDE 0.9% 250 ML IV SCH (06:00)
[2018-09-23] MEDS ORDERED: POTASSIUM CHLORIDE 20 MEQ PACKET PO SCH (09:00)
== END 2018-09-22 17:20 | DRG 871 ==
LOC: ED 19:35 → EDIP 19:36 → 4EST 20:14
PROVIDERS: ADMIT Internal Medicine; ATTEND Internal Medicine
DX: A41.9 Sepsis, unspecified organism (principal); J15.9 Unspecified bacterial pneumonia; J96.21 Acute and chronic respiratory failure with hypoxia; E43 Unspecified severe protein-calorie malnutrition; J44.0 Chronic obstructive pulmonary disease with (acute) lower respiratory infection; J44.1 Chronic obstructive pulmonary disease with (acute) exacerbation; I50.30 Unspecified diastolic (congestive) heart failure; K52.1 Toxic gastroenteritis and colitis; I11.0 Hypertensive heart disease with heart failure; Y95 Nosocomial condition; T38.0X5A Adverse effect of glucocorticoids and synthetic analogues, initial encounter; T36.95XA Adverse effect of unspecified systemic antibiotic, initial encounter; N40.0 Benign prostatic hyperplasia without lower urinary tract symptoms; G89.29 Other chronic pain; M40.209 Unspecified kyphosis, site unspecified; K62.1 Rectal polyp; E10.65 Type 1 diabetes mellitus with hyperglycemia; D12.0 Benign neoplasm of cecum; Z99.81 Dependence on supplemental oxygen; Z87.891 Personal history of nicotine dependence; Z85.118 Personal history of other malignant neoplasm of bronchus and lung; Z90.79 Acquired absence of other genital organ(s); Z79.899 Other long term (current) drug therapy; Z79.1 Long term (current) use of non-steroidal anti-inflammatories (NSAID); Z79.2 Long term (current) use of antibiotics; Y92.89 Other specified places as the place of occurrence of the external cause; Z91.018 Allergy to other foods; Z68.23 Body mass index [BMI] 23.0-23.9, adult
CPT/HCPCS: 36415; 36600; 71045; 71260; 80048; 80053; 80061; 80202; 81001; 82040; 82803; 82947; 82962; 83036; 83605; 83735; 83880; 84439; 84443; 84484; 85025; 85610; 85730; 87040; 87070; 87077; 87086; 87205; 87324; 87400; 88305; 93005; 93306; 94640; 96361; 96365; 96372; G0378; J0456; J0696; J1644; J2543; J3370; J7620; Q9967; J1815; J1940; J2930; J7030; J7050; J7512

== ENCOUNTER 2019-12-07 19:33 | Emergency (ER) | payer MEDICARE, OTHER ==
[~2019-12-07] VITALS: Ht 177.8 cm; Wt 91.2 kg
[~2019-12-07 19:33] MED LIST changes: +ALBU2.5V NPPB; +FLUO20CA23 PO; -FLUO20CA8 PO; +HEPA50002 SQ; -HYDR-3307 PO; +HYDR-36 PO; +INSU100I11 SQ-INSULIN; +INSU100I13 SQ-INSULIN; +IPRA3AMP30 NPPB; +METH125V16 IVPush; +POTA20PA25 PO; +VERA120T13 PO; -VERA120T5 PO; +Vancomycin Per Pharmacy MC
--- NOTE | 2019-12-07 19:40 | NUR ---
Pt vomited during CT and suctioned. aware. Given 4 mg zofran via remsa before arrival. Cts accomplished and pt tx to room.
--- NOTE | 2019-12-07 19:40 | NUR ---
Pt presents to ed c/o stroke like s/s since 1830 this pm during dinner. Pt presents W/ L sided severe weakenss and no strengths to gravity. Pt slurring speech and has L sided facial droop. PT sent directly to ct and cts accomplished. Neurologist on case.
--- NOTE | 2019-12-07 20:14 | NUR ---
Attempted to call for potential of TPA and phone number not in service. No family in lobby. Pt unable to consent self d/t confusion. Neurologist recommends starting TPA w/ 2 RN consent and Enrico DE GUZMAN agrees.
[2019-12-07] MEDS ORDERED: OMNIPAQUE 350 MG/ML, 100ML BOTTLE ONE (20:15)
--- NOTE | 2019-12-07 20:21 | NUR ---
TPN initiated w/ nursex3 @bedside. China Ramon and Artur. Initial neuro complete and placed on paper chart.
--- NOTE | 2019-12-07 20:24 | NUR ---
Note undone in EDM - 12/07/19 at 2033 by DEMETRA Attempted to call for potential of TPA and phone number not in service. No family in lobby. Pt unable to consent self d/t confusion. Neurologist recommends starting TPA w/ 2 RN consent and Enrico DE GUZMAN agrees.
[2019-12-07 20:29] LABS: MEAN CORPUSCULAR HEMOGLOBIN 24.8 pg (27.5-34.5); MEAN CORPUSCULAR HGB CONC 31.6 g/dL (33.2-36.2); MEAN CORPUSCULAR VOLUME 78.6 fL (81-97); MEAN PLATELET VOLUME 7.8 fL (7.4-10.4); PLATELET COUNT 295 x10^3/uL (130-400); RED BLOOD COUNT 5.48 x10^6/uL (4.38-5.82)
--- NOTE | 2019-12-07 20:29 | NUR ---
Pt changed from vomitous on bed and placed on fresh bed, but cannot maintain o2 sat on 6 L NC and placed on Oxi-mask at this time.
[2019-12-07] MEDS ORDERED: ALTEPLASE IV ONE (20:30)
[2019-12-07] MEDS ORDERED: ALTEPLASE 8 MG in SYRINGE 1 EA IVPush ONE (20:30)
[2019-12-07 20:36] LABS: INTERNATIONAL NORMALIZED RATIO 0.91 (0.93-1.1); PROTHROMBIN TIME 9.6 Seconds (9.6-11.5)
[2019-12-07] MEDS ORDERED: ALTEPLASE 1 MG/ML, 100ML ONE (20:38)
--- NOTE | 2019-12-07 20:44 | NUR ---
Garett [phone] son called for update.
--- NOTE | 2019-12-07 20:49 | NUR ---
Pt can not hold L leg for 5 seconds and has minimal movement to L arm. made aware and at bedside for asessment. Addendum: 12/07/19 at 2049 by DEMETRA Pt can hold L leg for 5 seconds and has minimal movement to L arm. made aware and at bedside for asessment.
[2019-12-07 20:54] LABS: MD YES
[2019-12-07 20:56] LABS: BAND#(MANUAL) 1.49 x10^3/uL; BANDS%(MANUAL) 6 % (0-7); EOS#(MANUAL) 0.74 x10^3/uL (0.0-0.4); EOS% (MANUAL) 3 % (1-7); LYMPH#(MANUAL) 3.72 x10^3/uL (1-3.4); LYMPHS% (MANUAL) 15 % (22-44); MONOS#(MANUAL) 1.49 x10^3/uL (0.3-2.7); MONOS% (MANUAL) 6 % (2-9); SEG#(MANUAL) 17.36 x10^3/uL (1.8-6.8); SEGS% (MANUAL) 70 % (42-75)
--- NOTE | 2019-12-07 20:56 | NUR ---
Pt called and stated he has a stimulator in back for pain.
[2019-12-07 20:57] LABS: ANISOCYTOSIS 1+
[2019-12-07 20:59] LABS: <PLATELET ESTIMATE> ADEQUATE; <PLT MORPHOLOGY> NORMAL PLT MORPH; ECHINOCYTES 1+; OVALOCYTES 1+; TEAR DROPS 1+
[2019-12-07] MEDS ORDERED: SODIUM CHLORIDE FLUSH 10ML SYR IVF PRN (21:00)
[2019-12-07] MEDS ORDERED: methylPREDNISolone SOD SUCC 125 MG/2 ML ONE (21:02)
--- NOTE | 2019-12-07 21:23 | NUR ---
aware of declining bp. States to wait for 3rd ns L infusion. states high potential for Levophed peripheral for bp support. Tb tx to [facility] for IR.
[2019-12-07] MEDS ORDERED: methylPREDNISolone SOD SUCC 125 MG/2 ML IV ONE (21:30)
[2019-12-07] MEDS ORDERED: ALBUTEROL/IPRATROPIUM 2.5MG/0.5MG, 3 ML NPPB ONE (21:30)
--- NOTE | 2019-12-07 21:41 | NUR ---
TRANSFER SET WITH WITH AD AT [facility]. ER TO ER TRANSFER. [facility]SPORT SET UP WITH [facility]. CONSENT SIGNED BY PT AND ER MD. AWAITING AMBULANCE ARRIVAL
[2019-12-07 21:43] VITALS: BP 90/36
== END 2019-12-07 21:59 | disposition short-term general hospital (02) ==
LOC: ED 19:53
DX: I63.9 Cerebral infarction, unspecified (principal); R29.712 NIHSS score 12; I10 Essential (primary) hypertension; E11.9 Type 2 diabetes mellitus without complications; J44.9 Chronic obstructive pulmonary disease, unspecified; Z87.891 Personal history of nicotine dependence
CPT/HCPCS: 37195; 70450; 70496; 70498; 71045; 80047; 82962; 84145; 85025; 85610; 85730; 93005; 94640; 96365; 99291; J2930; J2997; Q9967